=== PATIENT | female | born 1965 | race African-American/Black ===

== ENCOUNTER 2020-02-08 23:23 | Emergency (ER) | payer OTHER, SELFPAY ==
[~2020-02-08] VITALS: Ht 167.6 cm; Wt 78.0 kg
[2020-02-09] MEDS ORDERED: KETOROLAC 30 MG/1 ML IM ONE
[2020-02-09] MEDS ORDERED: MAALOX/HYOSCYAMINE/LIDOCAINE 45 ML BTL PO ONE
[2020-02-09] MEDS ORDERED: PLEASE ENTER ALLERGIES MC SCH (00:30)
[2020-02-09] MEDS ORDERED: KETOROLAC 30 MG/1 ML ONE (00:31)
[2020-02-09] MEDS ORDERED: MAALOX/HYOSCYAMINE/LIDOCAINE 45 ML BTL ONE (00:31)
[2020-02-09 01:03] LABS: TROPONIN I < 0.015 ng/mL (0.000-0.045)
[2020-02-09] MEDS ORDERED: OXYcodone/APAP 5/325MG TABLET ONE (01:12)
[2020-02-09 01:13] VITALS: BP 122/55
[2020-02-09] MEDS ORDERED: OXYcodone/APAP 5/325MG TABLET PO ONE (01:30)
== END 2020-02-09 01:23 | disposition home or self-care (01) ==
LOC: ED 02-09 01:00
DX: M94.0 Chondrocostal junction syndrome [Tietze] (principal); R07.89 Other chest pain
CPT/HCPCS: 36415; 71045; 84484; 93005; 96372; 99285; J1885